=== PATIENT | female | born 1960 | race Caucasian/White ===

== ENCOUNTER 2017-08-13 06:57 | Day surgery (SDC) | payer BC ==
[~2017-08-13 06:57] MED LIST: RINGER'S SOLUTION,LACTATED 1,000 ML IV PRN
[2017-08-13] MEDS ORDERED: RINGER'S SOLUTION,LACTATED 1,000 ML IV ONE (09:50)
[2017-08-13] MEDS ORDERED: RINGER'S SOLUTION,LACTATED 1,000 ML IV PRN (10:11)
[2017-08-13 11:27] VITALS: BP 122/66
--- NOTE | 2017-08-13 15:49 | OR ---
Operative Report - Dictated Report Narrative: Operative Report Date of operation: 08/13/2017 Preoperative diagnosis: Dysphagia and GERD symptoms. No prior dedicated colon studies. Family history of colon cancer Postoperative diagnosis: Esophagitis, hiatal hernia, duodenitis (pathology and CLOtest pending). Normal colonoscopy to the cecum Operation: EGD with biopsies Surgeon: Dr Mueller Anesthesia: ANTHONY HENRY CRNA Indications for procedure: The patient is a 57-year-old female referred by Dr. Browne. She has had no previous dedicated colon studies. Her maternal and had colon cancer in her 70s. She states she moves her bowels daily. The patient has 2 or 3 year history of substernal discomfort with swallowing, heartburn and reflux. Esophagram in May was normal with exception of tertiary contractions of the distal esophagus. A 13 mm barium pill passed easily. Findings: Inflammation at the GE junction with a small sliding hiatal hernia. Duodenitis (pathology and CLOtest pending). Very capacious redundant colon requiring extra time and use of reduction maneuvers, otherwise normal exam to the cecum Narrative of procedure: The patient was identified preoperatively, and prior to the administration of anesthetic a multidisciplinary timeout was observed EGD: With the patient in the recumbent position, a bite-block was placed, intravenous sedation was administered, and the patient's eyes covered with a towel. The flexible fiberoptic gastroscope was advanced into the posterior pharynx which appeared normal. The supraglottic larynx appeared normal. The cords appeared normal, moved well, and opposed in the midline. The scope was advanced under direct vision into the proximal esophagus which appeared normal. The esophagus appeared freely distensible with normal mucosa. The esophageal mucosa appeared normal down to the gastroesophageal junction which is edematous and mildly inflamed. The GE junction appeared normally distensible. There was a small sliding hiatal hernia. The scope was advanced into the stomach which was insufflated with air. The gastric mucosa appeared grossly normal with no ulcerations or neoplastic lesions including a retroflexed view of the gastric fundus. The scope was redirected toward the pylorus. The pylorus appeared patent. The scope was advanced into the duodenal bulb which appeared inflamed with patchy areas of erythema but no cole ulcerations. The scope was advanced further to the horizontal portion of the duodenum which appeared normal, specifically the villous architecture appeared well preserved and clear bile was present. The scope was slowly withdrawn through the duodenal bulb with confirmation that no active ulcer was present. A biopsy of duodenal bulb mucosa was obtained and submitted for pathology. The biopsy site appeared hemostatic. The scope was withdrawn into the stomach and patient relations representative biopsy of gastric mucosa obtained for CLOtest. The biopsy site was seen to be hemostatic. The scope was withdrawn to the GE junction which was biopsied. The biopsy site appeared hemostatic. The insufflated air was removed, the scope withdrawn from the patient, and this portion of the procedure terminated. COLONOSCOPY: The patient was then placed in the left lateral position, and the perineum was inspected. There was no evidence of pilonidal disease or skin breakdown. The external appearance of the anus was normal. Sphincter tone was good. The flexible fiberoptic colonoscope was inserted into the rectum which was insufflated with air. The rectal mucosa and submucosal vascular pattern appeared normal, the prep was seen to be complete. The scope was advanced through the sigmoid colon, up the descending colon, and around the splenic flexure where the triangular haustral architecture of the transverse colon was seen. The scope was advanced across the transverse colon, around the hepatic flexure to the cecum, where the confluence of tenia and the ileocecal valve were identified. The mucosa at this level appeared normal. The scope was then slowly withdrawn in a circular fashion so that all aspects of colonic mucosa were inspected. The colon was very capacious in character and redundant in course requiring extra time and the use of external manual compression and standard reduction maneuvers to reach the cecum. The haustral architecture appeared well preserved throughout with no evidence of external compression. The mucosa and submucosal vascular pattern appeared normal, specifically there was no gross evidence to suggest colitis or inflammatory bowel disease and no AV malformations were seen. No cole diverticulosis was demonstrated. No polyps were encountered. The scope was gradually withdrawn to the level of the rectum. As much insufflated air as possible was removed. The scope was withdrawn from the patient and the procedure terminated. The patient tolerated the anesthetic and procedure well without complication and was transferred back to the ambulatory surgery area awake and in stable condition. The patient remained stable throughout a period of postoperative observation. She denied abdominal discomfort, was able to tolerate by mouth intake, and was up without assistance. I shared the operative findings with the patient and she was given copies of the photographs which appear in the medical record. She was discharged home with instructions not to engage in hazardous activity today , but may resume normal activity tomorrow, and advance diet as tolerated. She is to continue those medications as listed in the history and physical exam. I made arrangements to contact her with the biopsy reports and will make additional recommendations for treatment and follow-up based upon those results. Reviewed and electronically signed
== END 2017-08-13 06:58 | disposition home or self-care (01) ==
LOC: AMB 06:57
PROVIDERS: ATTEND Surgery
PROC: 0DJD8ZZ Inspection of Lower Intestinal Tract, Via Natural or Artificial Opening Endoscopic (ICD-10-PCS; principal; 2017-08-13)
PROC: 0DB98ZX Excision of Duodenum, Via Natural or Artificial Opening Endoscopic, Diagnostic (ICD-10-PCS; 2017-08-13)
PROC: 0DB68ZX Excision of Stomach, Via Natural or Artificial Opening Endoscopic, Diagnostic (ICD-10-PCS; 2017-08-13)
PROC: 0DB48ZX Excision of Esophagogastric Junction, Via Natural or Artificial Opening Endoscopic, Diagnostic (ICD-10-PCS; 2017-08-13)
DX: Z12.11 Encounter for screening for malignant neoplasm of colon (principal); K21.0 Gastro-esophageal reflux disease with esophagitis; K29.80 Duodenitis without bleeding; K44.9 Diaphragmatic hernia without obstruction or gangrene; I10 Essential (primary) hypertension; E78.5 Hyperlipidemia, unspecified; Z80.0 Family history of malignant neoplasm of digestive organs; Z87.891 Personal history of nicotine dependence; Z68.26 Body mass index [BMI] 26.0-26.9, adult